=== PATIENT | female | born 1955 | race Caucasian/White ===

== ENCOUNTER 2023-03-17 14:57 | Inpatient (IN) | payer OTHER, MEDICAID ==
[~2023-03-17] VITALS: Ht 154.9 cm; Wt 73.0 kg
[~2023-03-17 14:57] MED LIST: PIPERACILLIN/TAZO 3.375/DEX-IS 50 ML IV SCH
[2023-03-17 15:07] VITALS: BP_SYST 135; PULSE 59; RESP 20; TEMP 96.2; O2SAT 98
[2023-03-17] MEDS ORDERED: KETOROLAC TROMETHAMINE 30 MG VIAL IVP ONE (15:15)
[2023-03-17] MEDS ORDERED: ONDANSETRON HCL 4 MG/2 ML VIAL IVP ONE ×2 (15:15→17:00)
[2023-03-17] MEDS ORDERED: NACL 0.9% 1,000 ML IV ONE ×2 (15:15→17:00)
[2023-03-17 15:26] LABS: BASOPHILS % (AUTO) 0.4 % (0.0-2.0); EOSINOPHILS # (AUTO) 0.1 K/uL (0.0-0.4); EOSINOPHILS % (AUTO) 1.3 % (0.0-4.0); HEMATOCRIT 38.3 % (36-48); HEMOGLOBIN 12.5 g/dL (12.0-16.0); LYMPHOCYTES % (AUTO) 26.3 % (20.5-51.5); MEAN CORPUSCULAR HEMOGLOBIN 29 pg (27-31); MEAN CORPUSCULAR HGB CONC 33 % (32-36); MEAN CORPUSCULAR VOLUME 89 fL (79.0-98.0); MONOCYTES # (AUTO) 0.6 K/uL (0.0-1.0); MONOCYTES % (AUTO) 5.4 % (1.7-9.3); NEUTROPHILS # (AUTO) 7.7 K/uL (1.8-7.7); NEUTROPHILS % (AUTO) 66.6 % (40.0-70.0); PLATELET COUNT (AUTO) 221 K/uL (130-430); RED BLOOD CELL COUNT(AUTO) 4.32 MIL/uL (4.2-6.2); RED CELL DISTRIBUTION WIDTH 13.6 % (9.0-15.0); WHITE BLOOD COUNT (AUTO) 11.5 K/uL (4.8-10.8)
[2023-03-17 15:44] LABS: CALCIUM 8.8 mg/dL (8.4-11.0); CREATININE 1.03 mg/dL (0.55-1.30); POTASSIUM 3.6 mmol/L (3.5-5.1)
[2023-03-17 15:49] LABS: ALBUMIN 3.5 g/dL (3.4-4.8); TOTAL BILIRUBIN 0.5 mg/dL (0.0-1.0); TOTAL PROTEIN, SERUM 6.8 g/dL (6.4-8.3)
[2023-03-17 16:23] LABS: FREE T4 (FREE THYROXINE) 1.1 ng/dL (0.6-1.6); THYROID STIMULATING HORMONE 3.16 uIu/mL (0.34-4.82)
[2023-03-17 16:43] LABS: BILIRUBIN,URINE 1+ (NEGATIVE); BLOOD, URINE 3+ (NEGATIVE); CLARITY/URINE CLEAR (CLEAR); COLOR,URINE YELLOW (YELLOW); GLUCOSE,URINE NEGATIVE (NEGATIVE); KETONES,URINE 1+ (NEGATIVE); LEUKOCYTE ESTERASE ,URINE NEGATIVE (NEGATIVE); NITRITE, URINE NEGATIVE (NEGATIVE); PH,URINE 7.5 (5.0-8.0); PROTEIN URINE 2+ (NEGATIVE)
[2023-03-17 16:57] LABS: BACTERIA,URINE MODERATE /HPF (None Seen); WBC,URINE >100 /HPF (0-3)
[2023-03-17] MEDS ORDERED: TAMSULOSIN HCL 0.4 MG CAP PO ONE (17:00)
[2023-03-17] MEDS ORDERED: MORPHINE 4 MG INJ. 4 MG/ML VIAL IVP ONE (17:00)
[2023-03-17] MEDS ORDERED: cefTRIAXone 1 GM in D5W 50 ML IV ONE (17:30)
[2023-03-17] MEDS ORDERED: cefTRIAXone 1 GM VIAL ONE (17:49)
[2023-03-17] MEDS ORDERED: ONDANSETRON HCL 4 MG/2 ML VIAL IVP PRN (18:30)
[2023-03-17] MEDS ORDERED: KETOROLAC TROMETHAMINE 15 MG VIAL IVP PRN (18:30)
[2023-03-17] MEDS ORDERED: MORPHINE 4 MG INJ. 4 MG/ML VIAL IVP PRN (18:30)
[2023-03-17 18:49] LABS: PROTHROMBIN TIME 10.5 SECS (9.5-12.5)
[2023-03-17] MEDS ORDERED: PIPERACILLIN/TAZO 3.375/DEX-IS 50 ML IV ONE (19:30)
[2023-03-17 20:00] VITALS: BP_SYST 147; PULSE 55; RESP 18; TEMP 97.1; O2SAT 100
[2023-03-17] MEDS: LR 1,000 ML IV SCH (21:39)
[2023-03-17] MEDS: TAMSULOSIN HCL 0.4 MG CAP PO SCH (21:45)
[2023-03-18] VITALS (8 sets, daily range): BP systolic 132–183; PULSE 47–55; RESP 15–18; TEMP 96.2–97.6; O2SAT 95–100
[2023-03-18] MEDS: PIPERACILLIN/TAZO 3.375/DEX-IS 50 ML IV SCH ×4 (00:25→18:07)
[2023-03-18 05:24] LABS: BASOPHILS % (AUTO) 0.4 % (0.0-2.0); EOSINOPHILS # (AUTO) 0.2 K/uL (0.0-0.4); EOSINOPHILS % (AUTO) 2.8 % (0.0-4.0); HEMATOCRIT 33.5 % (36-48); HEMOGLOBIN 11.1 g/dL (12.0-16.0); LYMPHOCYTES # (AUTO) 2.9 K/uL (1.0-5.5); LYMPHOCYTES % (AUTO) 41.8 % (20.5-51.5); MEAN CORPUSCULAR HEMOGLOBIN 30 pg (27-31); MEAN CORPUSCULAR HGB CONC 33 % (32-36); MEAN CORPUSCULAR VOLUME 90 fL (79.0-98.0); MONOCYTES # (AUTO) 0.4 K/uL (0.0-1.0); MONOCYTES % (AUTO) 6.1 % (1.7-9.3); NEUTROPHILS # (AUTO) 3.4 K/uL (1.8-7.7); NEUTROPHILS % (AUTO) 48.9 % (40.0-70.0); PLATELET COUNT (AUTO) 180 K/uL (130-430); RED BLOOD CELL COUNT(AUTO) 3.73 MIL/uL (4.2-6.2); RED CELL DISTRIBUTION WIDTH 13.9 % (9.0-15.0); WHITE BLOOD COUNT (AUTO) 6.9 K/uL (4.8-10.8)
[2023-03-18 05:42] LABS: CALCIUM 8.3 mg/dL (8.4-11.0); CREATININE 0.79 mg/dL (0.55-1.30); POTASSIUM 3.3 mmol/L (3.5-5.1); URIC ACID 2.7 mg/dL (2.4-7.0)
[2023-03-18] MEDS: LR 1,000 ML IV SCH ×2 (05:42→14:08)
[2023-03-18] MEDS: TAMSULOSIN HCL 0.4 MG CAP PO SCH ×2 (08:42→20:43)
[2023-03-18] MEDS ORDERED: POTASSIUM CHLORIDE 20 MEQ TAB.PRT.SR PO ONE (11:15)
[2023-03-18] MEDS: KCL 40 mEq in D5W 1000 mL 1,000 ML IV SCH ×2 (14:09→21:37)
[2023-03-18] MEDS: THEOPHYLLINE ANHYDROUS 80 MG/15 ML UDC PO SCH (21:37)
[2023-03-19] MEDS: PIPERACILLIN/TAZO 3.375/DEX-IS 50 ML IV SCH ×5 (00:20→23:13)
[2023-03-19 01:02] VITALS: BP_SYST 150; PULSE 48; RESP 18; TEMP 96.5; O2SAT 97
[2023-03-19 04:35] LABS: BASOPHILS % (AUTO) 0.4 % (0.0-2.0); EOSINOPHILS # (AUTO) 0.3 K/uL (0.0-0.4); EOSINOPHILS % (AUTO) 3.3 % (0.0-4.0); HEMATOCRIT 35.4 % (36-48); HEMOGLOBIN 11.6 g/dL (12.0-16.0); LYMPHOCYTES # (AUTO) 2.8 K/uL (1.0-5.5); LYMPHOCYTES % (AUTO) 37.4 % (20.5-51.5); MEAN CORPUSCULAR HEMOGLOBIN 29 pg (27-31); MEAN CORPUSCULAR HGB CONC 33 % (32-36); MEAN CORPUSCULAR VOLUME 90 fL (79.0-98.0); MONOCYTES # (AUTO) 0.5 K/uL (0.0-1.0); MONOCYTES % (AUTO) 6.9 % (1.7-9.3); NEUTROPHILS # (AUTO) 3.9 K/uL (1.8-7.7); PLATELET COUNT (AUTO) 194 K/uL (130-430); RED BLOOD CELL COUNT(AUTO) 3.94 MIL/uL (4.2-6.2); RED CELL DISTRIBUTION WIDTH 13.5 % (9.0-15.0); WHITE BLOOD COUNT (AUTO) 7.6 K/uL (4.8-10.8)
[2023-03-19 04:54] LABS: CALCIUM 8.6 mg/dL (8.4-11.0); CREATININE 0.79 mg/dL (0.55-1.30); POTASSIUM 3.8 mmol/L (3.5-5.1)
[2023-03-19 07:44] VITALS: BP_SYST 153; PULSE 51; RESP 18; TEMP 96.9; O2SAT 98
[2023-03-19 08:00] VITALS: O2SAT 98
[2023-03-19] MEDS: TAMSULOSIN HCL 0.4 MG CAP PO SCH ×2 (09:10→20:08)
[2023-03-19] MEDS: THEOPHYLLINE ANHYDROUS 80 MG/15 ML UDC PO SCH ×2 (09:11→20:09)
[2023-03-19] MEDS: KCL 40 mEq in D5W 1000 mL 1,000 ML IV SCH ×2 (11:33→23:12)
[2023-03-19 12:00] VITALS: BP_SYST 147; PULSE 87; RESP 18; TEMP 96.7; O2SAT 98
[2023-03-19 16:00] VITALS: BP_SYST 148; PULSE 79; RESP 18; TEMP 96.8; O2SAT 98
[2023-03-19 20:00] VITALS: BP_SYST 157; PULSE 8; RESP 18; TEMP 97; O2SAT 97
[2023-03-20] VITALS: BP_SYST 152; PULSE 76; RESP 16; TEMP 97.1; O2SAT 97
[2023-03-20 05:10] LABS: BASOPHILS % (AUTO) 0.4 % (0.0-2.0); EOSINOPHILS # (AUTO) 0.3 K/uL (0.0-0.4); EOSINOPHILS % (AUTO) 4.2 % (0.0-4.0); HEMATOCRIT 38.7 % (36-48); HEMOGLOBIN 12.6 g/dL (12.0-16.0); LYMPHOCYTES # (AUTO) 2.4 K/uL (1.0-5.5); LYMPHOCYTES % (AUTO) 31.3 % (20.5-51.5); MEAN CORPUSCULAR HEMOGLOBIN 29 pg (27-31); MEAN CORPUSCULAR HGB CONC 33 % (32-36); MEAN CORPUSCULAR VOLUME 90 fL (79.0-98.0); MONOCYTES # (AUTO) 0.5 K/uL (0.0-1.0); MONOCYTES % (AUTO) 7.2 % (1.7-9.3); NEUTROPHILS # (AUTO) 4.3 K/uL (1.8-7.7); NEUTROPHILS % (AUTO) 56.9 % (40.0-70.0); PLATELET COUNT (AUTO) 217 K/uL (130-430); RED BLOOD CELL COUNT(AUTO) 4.31 MIL/uL (4.2-6.2); RED CELL DISTRIBUTION WIDTH 13.8 % (9.0-15.0); WHITE BLOOD COUNT (AUTO) 7.6 K/uL (4.8-10.8)
[2023-03-20] MEDS: PIPERACILLIN/TAZO 3.375/DEX-IS 50 ML IV SCH ×2 (05:44→11:13)
[2023-03-20 06:34] LABS: CREATININE 0.9 mg/dL (0.55-1.30); POTASSIUM 4.1 mmol/L (3.5-5.1)
[2023-03-20] MEDS ORDERED: METOCLOPRAMIDE HCL 10 MG/2 ML VIAL ONE (08:51)
[2023-03-20] MEDS ORDERED: ONDANSETRON HCL 4 MG/2 ML VIAL ONE (08:51)
[2023-03-20] MEDS ORDERED: fentaNYL CITRATE/PF 100 MCG/2 ML AMP ONE (08:51)
[2023-03-20] MEDS ORDERED: PROPOFOL 200MG/ 20ML VIAL (DIPRIVAN) IV ONE (08:51)
[2023-03-20] MEDS ORDERED: NS IRRIG SOLN 1000 ML IR ONE (08:51)
[2023-03-20] MEDS ORDERED: SUCCINYLCHOLINE CHLORIDE 20 MG/ML(QUELICIN) ONE (08:51)
[2023-03-20] MEDS ORDERED: MIDAZOLAM HCL 5 MG/ML VIAL (VERSED) IV ONE (08:51)
[2023-03-20] MEDS ORDERED: LR 1,000 ML IV.SOLN IV ONE (08:51)
[2023-03-20] MEDS ORDERED: SEVOFLURANE 15 MIN GAS INH ONE (08:51)
[2023-03-20] MEDS ORDERED: ePHEDrine sulfate 50 MG/ML VIAL ONE (08:51)
[2023-03-20] MEDS ORDERED: DEXAMETHASONE SOD PHOSPHATE 4 MG/ML VIAL ONE (08:51)
[2023-03-20] MEDS ORDERED: HYDROmorphone 1 MG/ML INJ. CARTRIDGE IVP PRN ×2 (09:00)
[2023-03-20] MEDS ORDERED: ONDANSETRON HCL 4 MG/2 ML VIAL IVP PRN (09:00)
[2023-03-20] MEDS ORDERED: NALOXONE HCL 0.4 MG/ML AMP (NARCAN) IVP PRN ×2 (09:00)
[2023-03-20 09:50] VITALS: BP_SYST 148; PULSE 81; RESP 17; TEMP 97.2; O2SAT 96
[2023-03-20 10:03] VITALS: O2SAT 96
[2023-03-20] MEDS: TAMSULOSIN HCL 0.4 MG CAP PO SCH (11:12)
[2023-03-20] MEDS: THEOPHYLLINE ANHYDROUS 80 MG/15 ML UDC PO SCH (11:13)
[2023-03-20 12:15] VITALS: BP_SYST 139; PULSE 81; RESP 18; TEMP 97.3; O2SAT 95
[2023-03-20] MEDS ORDERED: CEPH-548 PO (13:45)
[2023-03-20] MEDS ORDERED: TAMS-11 PO (13:47)
[2023-03-20] MEDS ORDERED: LACT1CAP69 PO (13:48)
[2023-03-20 13:56] VITALS: BP_SYST 139; PULSE 81; RESP 18; TEMP 97.3; O2SAT 95
== END 2023-03-20 14:13 | disposition home or self-care (01) | DRG 690 ==
LOC: SED 14:57 → SMU 17:32 → STU 03-18 17:30
PROVIDERS: ADMIT Internal Medicine; ATTEND Internal Medicine
PROC: 0TF7XZZ Fragmentation in Left Ureter, External Approach (ICD-10-PCS; principal; 2023-03-20 07:35)
DX: N13.6 Pyonephrosis (principal); R00.1 Bradycardia, unspecified; F32.A Depression, unspecified; Z90.710 Acquired absence of both cervix and uterus; Z87.891 Personal history of nicotine dependence; Z81.8 Family history of other mental and behavioral disorders
CPT/HCPCS: 36415; 71045; 74018; 76376; 80048; 80053; 81000; 83690; 84439; 84443; 84484; 84550; 85025; 85610-TC; 85730-TC; 86886; 86900; 86901; 87040; 87081; 87086; 93005; 93306; 96361; 96365; 96375; 96376; 99285; G0378; J0330; J0696; J1100; J1885; J2250; J2270; J2405; J2543; J2704; J2765; J3010; J7030; J7120